=== PATIENT | female | born 1940 | race Caucasian/White ===

== ENCOUNTER 2020-06-01 09:41 | Outpatient (CLI) | payer MEDICARE, OTHER | END 2020-06-01 09:42 | disposition home or self-care (01) | LOC: CSHMAMMO 09:41 | PROVIDERS: ATTEND Family Medicine | DX: M80.08XA Age-related osteoporosis with current pathological fracture, vertebra(e), initial encounter for fracture (principal); M85.88 Other specified disorders of bone density and structure, other site | CPT/HCPCS: 77080 ==